=== PATIENT | male | born 1950 | race Caucasian/White ===

== ENCOUNTER 2018-06-13 05:55 | Day surgery (SDC) | payer OTHER ==
[~2018-06-13 05:55] MED LIST: ATORVASTATIN CA10 MG PO; FAMOTIDINE20 MG PO; GABAPENTIN800 MG PO; LISINOPRIL40 MG PO; NORVASC10 MG PO; OXYBUTYNIN CHLOR5 M1 PO; PROSCAR5 MG PO; TAMS0.4C PO
== END 2018-06-13 15:10 | disposition home or self-care (01) ==
LOC: CIR.AMB 05:55
DX: S60.352A Superficial foreign body of left thumb, initial encounter (principal); L98.498 Non-pressure chronic ulcer of skin of other sites with other specified severity